=== PATIENT | female | born 1985 | race Asian ===

== ENCOUNTER 2017-04-15 23:46 | Emergency (ER) | payer OTHER ==
[2017-04-16] MEDS ORDERED: NS 1,000 ML IV ONE (00:17)
[2017-04-16] MEDS ORDERED: HYOSCYAMINE SULFATE 0.125 MG TAB PO ONE (00:49)
[2017-04-16 00:57] LABS: % IMMATURE GRANULYOCYTES 0.7 % (0.0-1.1); ABSOLUTE IMMATURE GRANULOCYTES 0.04 10^3/uL (0.00-0.10); ADD DIFF? NO; ADD MORPH? NO; ADD SCAN? NO; ATYPICAL LYMPHOCYTE FLAG 50 (0-99); FRAGMENT RBC FLAG 0 (0-99); HEMATOCRIT 40.9 % (38.0-47.0); HEMOGLOBIN 13.9 g/dL (12.6-16.3); LEFT SHIFT FLG 0 (0-99); LIPEMIA HEMOLYSIS FLAG 90 (0-99); MEAN CELL HEMOGLOBIN 30.7 pg (27.9-34.1); MEAN CELL VOLUME 90.3 fL (81.5-99.8); MEAN PLATELET VOLUME 9.2 fL (8.7-11.7); PLATELET CLUMPS FLAG 0 (0-99); PLATELET COUNT 246 10^3/uL (150-400); RED BLOOD CELL COUNT 4.53 10^6/uL (4.18-5.33); RED CELL DISTRIBUTION WIDTH 11.8 % (11.5-15.2)
[2017-04-16 01:23] LABS: ANION GAP 13 mEq/L (8-16); CALCIUM 9.6 mg/dL (8.5-10.4); CARBON DIOXIDE 20 mEq/l (22-31); CHLORIDE 105 mEq/L (97-110); CREATININE 0.6 mg/dL (0.6-1.0); GLOMERULAR FILTRATION RATE > 60; GLUCOSE 97 mg/dL (70-100); POTASSIUM 4.4 mEq/L (3.5-5.2); SODIUM 138 mEq/L (134-144)
--- NOTE | 2017-04-16 01:35 | EDPHY ---
H & P Stated Complaint: NAUSEA AND DIARRHEA FOR PAT 3 DAYS. ABLE TO EAT AND DRINK Time Seen by Provider: 04/16/17 00:07 HPI/ROS: Chief Complaint: Diarrhea HPI: 31-year-old female's been having diarrhea for 3 days. Patient's diarrhea began after she ate some marinaded blue crabs made by her mother. Other family members have been having diarrhea as well. Denies any blood. No doctor cardiac stools Has been having some stomach cramping. Some nausea or vomiting. She is tolerating fluids. No fevers or chills. Has been taking Imodium without significant relief. Is having watery diarrhea is 7-8 per day. No lightheadedness or fainting. No chest pain or shortness of breath. No numbness or tingling. ROS: 10 point Review of Systems is negative except as noted in the HPI. PMH: None Social History: No smoking, no alcohol, no recreational drug use Family History: non-contributory Physical Exam: Gen: Awake, Alert, No Distress HEENT: Nose: no rhinorrhea Eyes: PERRLA, EOMI Mouth: Moist mucosa Neck: Supple, no JVD Chest: nontender, lungs clear to auscultation Heart: S1, S2 normal, no murmur Abd: Soft, non-tender, no guarding Back: no CVA tenderness, no midline tenderness Ext: no edema, non-tender Skin: no rash Neuro: CN II-XII intact, Sensation grossly intact, Strength 5/5 in bilateral upper and lower extremities - Personal History LMP (Females 10-55): 8-14 Days Ago Current Tetanus/Diphtheria Vaccine: Yes Current Tetanus Diphtheria and Acellular Pertussis (TDAP): Yes Tetanus Vaccine Date: 2016 - Medical/Surgical History Hx Asthma: No Hx Chronic Respiratory Disease: No Hx Diabetes: No Hx Cardiac Disease: No Hx Renal Disease: No Hx Cirrhosis: No Hx Alcoholism: No Hx HIV/AIDS: No Hx Splenectomy or Spleen Trauma: No Other PMH: GERD - Social History Smoking Status: Never smoked Constitutional: Initial Vital Signs Temperature (C) 36.4 C 04/15/17 23:47 Heart Rate 90 04/15/17 23:47 Respiratory Rate 18 04/15/17 23:47 Blood Pressure 110/72 04/15/17 23:47 O2 Sat (%) 97 04/15/17 23:47 O2 Delivery Mode Room Air Allergies/Adverse Reactions: No Known Allergies Allergy (Unverified 04/15/17 23:51) Home Medications: Medication Instructions Recorded Ciprofloxacin [Cipro] 500 mg PO BID #14 tab 04/16/17 Medical Decision Making ED Course/Re-evaluation: 31-year-old woman with 3 days of diarrhea after eating some crabs. Other family members are having similar symptoms. Will give IV fluids, antispasmodic. Is will send a stool cultures. Does not be back tonight. I have discussed this with the patient and her her family. They will follow up on results tomorrow. Meantime a write her prescription for Cipro. If the cultures come back positive for a bacteria cause for which antibiotic treatment is necessary they can get the prescription filled, otherwise it can be discarded. - Data Points Laboratory Results: Laboratory Results 04/16/17 00:39 04/16/17 00:39 04/16/17 04/16/17 00:39 00:39 WBC 5.41 10^3/uL 10^3/uL (3.80-9.50) RBC 4.53 10^6/uL 10^6/uL (4.18-5.33) Hgb 13.9 g/dL g/dL (12.6-16.3) Hct 40.9 % % (38.0-47.0) MCV 90.3 fL fL (81.5-99.8) MCH 30.7 pg pg (27.9-34.1) MCHC 34.0 g/dL g/dL (32.4-36.7) RDW 11.8 % % (11.5-15.2) Plt Count 246 10^3/uL 10^3/uL (150-400) MPV 9.2 fL fL (8.7-11.7) Neut % (Auto) 54.9 % % (39.3-74.2) Lymph % (Auto) 32.7 % % (15.0-45.0) [place] % (Auto) 8.9 % % (4.5-13.0) Eos % (Auto) 2.4 % % (0.6-7.6) Baso % (Auto) 0.4 % % (0.3-1.7) Nucleat RBC Rel Count 0.0 % % (0.0-0.2) Absolute Neuts (auto) 2.97 10^3/uL 10^3/uL (1.70-6.50) Absolute Lymphs (auto) 1.77 10^3/uL 10^3/uL (1.00-3.00) Absolute Monos (auto) 0.48 10^3/uL 10^3/uL (0.30-0.80) Absolute Eos (auto) 0.13 10^3/uL 10^3/uL (0.03-0.40) Absolute Basos (auto) 0.02 10^3/uL 10^3/uL (0.02-0.10) Absolute Nucleated RBC 0.00 10^3/uL 10^3/uL (0-0.01) Immature Gran % 0.7 % % (0.0-1.1) Immature Gran # 0.04 10^3/uL 10^3/uL (0.00-0.10) Sodium 138 mEq/L mEq/L (134-144) Potassium 4.4 mEq/L mEq/L (3.5-5.2) Chloride 105 mEq/L mEq/L (97-110) Carbon Dioxide 20 mEq/l L mEq/l (22-31) Anion Gap 13 mEq/L mEq/L (8-16) BUN 14 mg/dL mg/dL (7-23) Creatinine 0.6 mg/dL mg/dL (0.6-1.0) Estimated GFR > 60 Glucose 97 mg/dL mg/dL (70-100) Calcium 9.6 mg/dL mg/dL (8.5-10.4) Medications Given: Discontinued Medications Hyoscyamine Sulfate (Levsin, Hyomax-Sl) 0.25 mg PO ONCE ONE Stop: 04/16/17 00:50 Last Admin: 04/16/17 00:50 Dose: 0.25 mg Sodium Chloride (Ns) 1,000 mls @ 0 mls/hr IV ONCE ONE; Wide Open PRN Reason: Protocol Stop: 04/16/17 00:18 Last Admin: 04/16/17 00:39 Dose: 1,000 mls Departure - Departure Disposition: Home, Routine, Self-Care Clinical Impression: Food poisoning Condition: Good Instructions: Food Poisoning (ED), Acute Diarrhea (ED) Additional Instructions: Called to check on your stool culture results later today. You will be advised whether to start the ciprofloxacin. Follow up with primary care physician in 2-3 days for further evaluation. Return to the emergency department for uncontrolled nausea or vomiting, weakness , fainting, or any other concerns. Referrals: Aditi Lopez MD [Primary Care Provider] - As per Instructions Prescriptions: Ciprofloxacin [Cipro] 500 mg PO BID #14 tab
[2017-04-16 01:50] VITALS: BP 98/63; PULSE 76; RESP 16; TEMP 97.7; O2SAT 98
== END 2017-04-16 01:47 | disposition home or self-care (01) ==
DX: T61.8X1A Toxic effect of other seafood, accidental (unintentional), initial encounter (principal); E86.9 Volume depletion, unspecified

== ENCOUNTER → 2017-06-17 | Outpatient (CLI) | payer OTHER | LOC: FIMAGING 07:32 | PROVIDERS: ATTEND Radiology Diagnostic Radiology | DX: D25.2 Subserosal leiomyoma of uterus (principal) ==